=== PATIENT | female | born 1995 | race Two or more races ===

== ENCOUNTER 2025-09-10 13:04 | Emergency (ER) | payer MEDICAID, SELFPAY ==
[2025-09-10 13:13] VITALS: BP 137/82; PULSE 72; RESP 17; TEMP 36.8; O2SAT 99; BMI 31.2
--- NOTE | 2025-09-10 13:26 | EDNOTE_ITS ---
ED Dental RME/HPI General Chief complaint: Dental/Oral/Throat Stated complaint: Right upper tooth infection X 2 weeks Time Seen by Provider: 09/10/25 13:07 Arrival date/time: 09/10/25 13:04 30-year-old female presents to the emergency room today complaints of right upper tooth pain patient ports he had infection for last couple of weeks patient reports no fever nausea or vomiting no headache dizziness weakness patient does report swelling to the right upper cheek Limitations: no limitations Related Data Previous Rx's ?Medication ?Instructions ?Recorded ibuprofen 600 mg tablet 600 mg PO TID PRN pain #30 t abs 07/14/23 tramadol 50 mg tablet 50 mg PO BID PRN pain #14 ta bs 07/16/23 clindamycin HCl 150 mg capsule 450 mg (3 x 150 mg) PO TID 7 days 09/10/25 #63 caps ibuprofen 800 mg tablet 800 mg PO TID PRN pain #30 t abs 09/10/25 Allergies Allergy/AdvReac Type Severity Reaction Status Date / Time No Known Allergies Allergy Verified 09/10/25 13:08 Review of Systems Review of Systems Systems Reviewed: All systems reviewed, normal except as documented Constitutional Constitutional: Reports system reviewed and no additional complaints, except as documented, Denies fever(s) and Denies headache(s) Eyes Eyes: Reports system reviewed and no additional complaints, except as documented and Denies blurry vision ENT Ears, Nose, Mouth, and Throat: Reports system reviewed and no additional complaints, except as documented, Reports dental pain, Denies headache(s), Denies nasal congestion and Denies nasal discharge Cardiovascular Cardiovascular: Reports system reviewed and no additional complaints, except as documented, Denies chest pain and Denies dyspnea Respiratory Respiratory: Reports system reviewed and no additional complaints, except as documented, Denies chest congestion, Denies cough and Denies dyspnea Gastrointestinal Gastrointestinal: Reports system reviewed and no additional complaints, except as documented and Denies abdominal pain Integumentary/Breasts Skin/Breast: Reports system reviewed and no additional complaints, except as documented and Denies rash Neurologic Neurologic: Reports system reviewed and no additional complaints, except as documented, Reports as per HPI and Denies headache(s) Past Medical History Social History SMOKING STATUS: Never smoker ED Exam General Limitations: Present no limitations General appearance: Present alert and in no apparent distress Head Head exam: Present atraumatic Eye Eye exam: Present normal appearance, PERRL and EOMI ENT ENT exam: Present mucous membranes moist Expanded ENT Exam Mouth exam: Absent drooling or trismus Teeth exam: Present dental caries and dental tenderness # Neck Neck exam: Present normal inspection, full ROM and trachea midline Chest Chest inspection: Present normal inspection and symmetric chest wall rise Respiratory Respiratory exam: Present normal lung sounds bilaterally Cardiovascular Cardiovascular exam: Present regular rate, normal rhythm and normal heart sounds Abdominal Exam Abdominal exam: Present soft and normal bowel sounds Extremities Exam Extremities exam: Present normal inspection and full ROM Back Exam Back exam: Present normal inspection and full ROM Neurological Exam Neurological exam: Present alert, oriented X3 and CN II-XII intact Psychiatric Psychiatric exam: Present normal affect and normal mood Skin Skin exam: Present warm, dry, intact and normal color Course Quality Measures none Orders Category Date Time Status Ibuprofen Tab [Motrin Tab] Med 09/10/25 13:24 Discontinued 800 mg PO X1 ONE Lidocaine 1% 20 ml [Xylocaine 1% 20 ML] Med 09/10/25 13:24 Discontinued 2.1 ml INFL X1 ONE cefTRIAXone [Rocephin] Med 09/10/25 13:24 Discontinued 1,000 mg IM X1 ONE Vital Signs Vital signs: Vital Signs Temperature 98.3 F 09/10/25 13:13 Pulse Rate 72 09/10/25 13:13 Respiratory Rate 17 09/10/25 13:13 Blood Pressure 137/82 H 09/10/25 13:13 Pulse Oximetry (%) 99 09/10/25 13:13 Oxygen Delivery Method Room Air 09/10/25 13:13 o2 sat 995 r.a wnl Dental / Oral MDM Narrative MDM Narrative:: 30-year-old female presents to the emergency room today complaints of right upper tooth pain patient ports he had infection for last couple of weeks patient reports no fever nausea or vomiting no headache dizziness weakness patient does report swelling to the right upper cheek On exam patient appearing does not appear ill or toxic no distress On exam patient does have dental pain and facial swelling Patient be given a prescription for pain medication antibiotics Patient given Rocephin here Patient struck to follow-up with dentist soon as possible for worsening symptoms return immediately. Patient data External records reviewed:: [facility] previous records Clinical information provided by:: patient Social determinants that could affect healthcare access:: none Patient has the following chronic illnesses:: none How is presenting disease/condition affected by chronic disease/condition?: no chronic disease Evaluation data The following diagnostics were reviewed and interpreted by me:: other (specify) (N/A) Lab and/or radiology exams considered but not ordered:: Considered not ordered Interpretation Summary: N/A Medications / Prescriptions Medications or Prescriptions considered but not ordered:: Given Medication administrations:: Medication Administration History Discontinued Medications Ceftriaxone Sodium (Ceftriaxone Sod Inj 1,000 Mg Vial) 1,000 mg IM X1 ONE Stop: 09/10/25 13:25 Last Admin: 09/10/25 13:44 Dose: 1,000 mg Documented By: MILAGROS Ibuprofen (Ibuprofen Tab 400 Mg Tablet) 800 mg PO X1 ONE Stop: 09/10/25 13:25 Last Admin: 09/10/25 13:43 Dose: 800 mg Documented By: MILAGROS Lidocaine HCl (Lidocaine Hcl 1% 20 Ml Vial) 2.1 ml INFL X1 ONE Stop: 09/10/25 13:25 Last Admin: 09/10/25 13:43 Dose: 2.1 ml Documented By: MILAGROS Given Consultations Consultation(s) initiated? (list below): No Diagnosis Dental Differential Diagnosis: gingival abscess, dental caries, toothache and dental abscess Most likely diagnosis given after review of the tests above:: Dental pain Admission Indicated Admission indicated?: not indicated Admission Request Was there a request for admission?: No Disposition Plan Disposition Plan: Discharge Discharge Attestation Discharge Attestation: The patient and all family members were given an opportunity to ask questions and understood the discharge instructions. Discharge instructions specifically effects, indications for sooner follow up or return to the emergency department, and the expected course of current diagnosis. Patient condition: Stable Discharge Plan Plan Patient Disposition: HOME (Self Care) Discharge Disposition comment: Stable Prescriptions/Referrals Prescriptions/Med Rec: New ibuprofen 800 mg tablet 800 mg PO TID PRN (Reason: pain) Qty: 30 0RF clindamycin HCl 150 mg capsule 450 mg PO TID 7 Days Qty: 63 0RF No Action ibuprofen 600 mg tablet 600 mg PO TID PRN (Reason: pain) Qty: 30 0RF tramadol 50 mg tablet 50 mg PO BID PRN (Reason: pain) Qty: 14 0RF Problem List Clinical Impression: Dental caries Patient/Caregiver Discharge Instructions Education Materials: ED Dental Cavity Additional Instructions: Please follow up with your primary care doctor in the next 24-48hrs for any worsening symptoms return here immediately Print Language: Armenian Stand Alone Forms: Moriah Award Info., Patient Portal Info Letter PA/RADIO PROGRAM DIRECTOR Supervising Physician PA/RADIO PROGRAM DIRECTOR Supervising Physician: Dr. [email or web address]
[2025-09-10] MEDS: LIDOCAINE HCL 1% 20 ML VIAL 2.1 ML INFL (13:43)
[2025-09-10] MEDS: IBUPROFEN TAB 400 MG TABLET 800 MG PO (13:43)
[2025-09-10] MEDS: cefTRIAXone SOD INJ 1,000 MG VIAL 1000 MG IM (13:44)
== END 2025-09-10 14:15 | disposition home or self-care (01) ==
LOC: SERX 13:51
PROVIDERS: Emergency Provider Emergency Medicine
DX: K04.7 Periapical abscess without sinus (principal)
CPT/HCPCS: 96372; 99282; J0696; J3490; A9270